=== PATIENT | male | born 1940 | race Caucasian/White ===

== ENCOUNTER 2018-08-23 16:07 | Inpatient (IN) | payer OTHER ==
[~2018-08-23] VITALS: Ht 165.1 cm; Wt 68.0 kg
[2018-08-23 16:09] VITALS: Ht 165.1 cm; Wt 68.0 kg
[2018-08-23 16:59] LABS: BASOPHIL % 0.7 % (0-2); PLATELET COUNT 223 x10^3mcL (130-400); RED CELL DISTRIBUTION WIDTH 13.7 % (11.5-14.5)
[2018-08-23 17:15] LABS: CALCIUM 8.5 mg/dL (8.5-10.1); CARBON DIOXIDE 28.7 mmol/L (21-32); CHLORIDE SERUM 101 mmol/L (98-107); GLUCOSE SERUM 126 mg/dL (74-106); POTASSIUM SERUM 4.1 mmol/L (3.5-5.1); SODIUM SERUM 139 mmol/L (136-145)
[2018-08-23 17:20] LABS: ALBUMIN 3.2 g/dL (3.4-5.0); ALKALINE PHOSPHATASE 62 U/L (46-116); ALT/SGPT 15 U/L (16-63); AST/SGOT 14 U/L (15-37); BILIRUBIN TOTAL 0.3 mg/dL (0.20-1.00); TOTAL PROTEIN, SERUM 6.7 g/dL (6.4-8.2)
[2018-08-23] MEDS ORDERED: GOOD SENSE OMEP20 MG PO (19:48)
[2018-08-23] MEDS ORDERED: GLUCOPHAGE XR500 MG PO (19:48)
[2018-08-23] MEDS ORDERED: ZESTRIL20 MG PO (19:49)
[2018-08-23] MEDS ORDERED: METOPROLOL TART50 MG PO (19:49)
[2018-08-23] MEDS ORDERED: LIPITOR40 MG PO (19:49)
[2018-08-23] MEDS ORDERED: VITAMIN D3 COM1 EACH PO (19:50)
[2018-08-23] MEDS ORDERED: ASPIR 8181 MG PO (19:50)
[2018-08-23 20:01] LABS: MAGNESIUM 1.6 mg/dL (1.8-2.4); PHOSPHOROUS 4.2 mg/dL (2.5-4.9)
[2018-08-23 20:02] LABS: CHOLESTEROL/HDL RATIO 4.6
[2018-08-23 20:28] LABS: microscopic required? YES; urine erythrocyte NEGATIVE (NEGATIVE)
[2018-08-23 21:47] VITALS: BP 149/60
[2018-08-24] VITALS (7 sets, daily range): BP systolic 156–181; BP diastolic 65–79
[2018-08-24] MEDS ORDERED: TOP50 PO (00:02)
[2018-08-24 06:43] LABS: CALCIUM 8.4 mg/dL (8.5-10.1); CARBON DIOXIDE 28.1 mmol/L (21-32); CHLORIDE SERUM 103 mmol/L (98-107); GLUCOSE SERUM 92 mg/dL (74-106); POTASSIUM SERUM 3.9 mmol/L (3.5-5.1); SODIUM SERUM 142 mmol/L (136-145)
[2018-08-24 06:44] LABS: BASOPHIL % 0.5 % (0-2); PLATELET COUNT 206 x10^3mcL (130-400); RED CELL DISTRIBUTION WIDTH 13.8 % (11.5-14.5)
[2018-08-25 05:28] VITALS: BP 165/67
[2018-08-25 07:37] LABS: CALCIUM 8.6 mg/dL (8.5-10.1); CARBON DIOXIDE 28.1 mmol/L (21-32); CHLORIDE SERUM 105 mmol/L (98-107); CREATININE SERUM 0.7 mg/dL (0.7-1.3); GLUCOSE SERUM 124 mg/dL (74-106); MAGNESIUM 1.8 mg/dL (1.8-2.4); PHOSPHOROUS 3.5 mg/dL (2.5-4.9); POTASSIUM SERUM 4.1 mmol/L (3.5-5.1); SODIUM SERUM 142 mmol/L (136-145)
[2018-08-25 07:46] LABS: BASOPHIL % 0.5 % (0-2); PLATELET COUNT 220 x10^3mcL (130-400); RED CELL DISTRIBUTION WIDTH 12.9 % (11.5-14.5)
[2018-08-25 08:21] VITALS: BP 193/76
[2018-08-25 10:49] VITALS: BP 188/83
[2018-08-25 13:23] VITALS: BP 173/79
[2018-08-25 16:53] VITALS: BP 149/69
[2018-08-25 20:46] VITALS: BP 141/70
[2018-08-26 05:48] VITALS: BP 166/71
[2018-08-26 07:41] LABS: CALCIUM 8.6 mg/dL (8.5-10.1); CARBON DIOXIDE 27.7 mmol/L (21-32); CHLORIDE SERUM 105 mmol/L (98-107); CREATININE SERUM 0.7 mg/dL (0.7-1.3); GLUCOSE SERUM 104 mg/dL (74-106); POTASSIUM SERUM 3.8 mmol/L (3.5-5.1); SODIUM SERUM 142 mmol/L (136-145)
[2018-08-26 07:43] LABS: BASOPHIL % 0.3 % (0-2); PLATELET COUNT 213 x10^3mcL (130-400); RED CELL DISTRIBUTION WIDTH 13.9 % (11.5-14.5)
[2018-08-26 09:59] VITALS: BP 162/70
[2018-08-26 13:01] VITALS: BP 202/82
[2018-08-26 15:47] VITALS: BP 159/69
[2018-08-26 22:30] VITALS: BP 167/72
[2018-08-27 06:06] VITALS: BP 174/80
[2018-08-27 07:49] VITALS: BP 192/74
[2018-08-27 12:10] VITALS: BP 168/75
[2018-08-27 16:09] VITALS: BP 181/80
[2018-08-27 17:27] VITALS: BP 164/71
[2018-08-27 21:06] VITALS: BP 155/67
[2018-08-28] VITALS (7 sets, daily range): BP systolic 147–181; BP diastolic 72–81
[2018-08-28 07:01] LABS: BASOPHIL % 0.3 % (0-2); PLATELET COUNT 229 x10^3mcL (130-400); RED CELL DISTRIBUTION WIDTH 13.5 % (11.5-14.5)
[2018-08-28 07:27] LABS: CALCIUM 8.9 mg/dL (8.5-10.1); CARBON DIOXIDE 28.9 mmol/L (21-32); CHLORIDE SERUM 102 mmol/L (98-107); CREATININE SERUM 0.8 mg/dL (0.7-1.3); GLUCOSE SERUM 144 mg/dL (74-106); POTASSIUM SERUM 3.9 mmol/L (3.5-5.1); SODIUM SERUM 139 mmol/L (136-145)
[2018-08-29 05:21] VITALS: BP 149/70
[2018-08-29 06:43] LABS: CALCIUM 8.6 mg/dL (8.5-10.1); CARBON DIOXIDE 25.2 mmol/L (21-32); CHLORIDE SERUM 101 mmol/L (98-107); CREATININE SERUM 0.7 mg/dL (0.7-1.3); GLUCOSE SERUM 153 mg/dL (74-106); POTASSIUM SERUM 3.5 mmol/L (3.5-5.1); SODIUM SERUM 137 mmol/L (136-145)
[2018-08-29 08:07] LABS: BASOPHIL % 0.3 % (0-2); PLATELET COUNT 243 x10^3mcL (130-400); RED CELL DISTRIBUTION WIDTH 13.4 % (11.5-14.5)
[2018-08-29 08:52] VITALS: BP 149/67
[2018-08-29 12:41] VITALS: BP 165/74
[2018-08-29 17:55] VITALS: BP 162/81
[2018-08-29 19:25] VITALS: BP 158/76
[2018-08-30 06:24] LABS: BASOPHIL % 0.4 % (0-2); PLATELET COUNT 230 x10^3mcL (130-400); RED CELL DISTRIBUTION WIDTH 13.7 % (11.5-14.5)
[2018-08-30 06:29] LABS: CALCIUM 8.5 mg/dL (8.5-10.1); CARBON DIOXIDE 26.2 mmol/L (21-32); CHLORIDE SERUM 101 mmol/L (98-107); CREATININE SERUM 0.8 mg/dL (0.7-1.3); GLUCOSE SERUM 173 mg/dL (74-106); POTASSIUM SERUM 3.6 mmol/L (3.5-5.1); SODIUM SERUM 137 mmol/L (136-145)
[2018-08-30 06:34] VITALS: BP 150/73
[2018-08-30 08:16] VITALS: BP 164/87
[2018-08-30 08:26] VITALS: BP 164/87
[2018-08-30] MEDS ORDERED: NOR10 PO (09:35)
[2018-08-30] MEDS ORDERED: ACCU-CHEK FAST1 EAC1 MC (09:35)
[2018-08-30] MEDS ORDERED: LISINOPRIL40 MG PO (09:35)
== END 2018-08-30 13:09 | disposition home or self-care (01) | DRG 73 ==
LOC: ED 16:07 → DU 19:18
PROVIDERS: Emergency Medicine; ADMIT General Practice
DX: G90.9 Disorder of the autonomic nervous system, unspecified (principal); N17.0 Acute kidney failure with tubular necrosis; G45.9 Transient cerebral ischemic attack, unspecified; E44.1 Mild protein-calorie malnutrition; D68.69 Other thrombophilia; E11.65 Type 2 diabetes mellitus with hyperglycemia; E83.42 Hypomagnesemia; E78.5 Hyperlipidemia, unspecified; K21.9 Gastro-esophageal reflux disease without esophagitis; R80.9 Proteinuria, unspecified; I10 Essential (primary) hypertension; Z79.82 Long term (current) use of aspirin; Z68.24 Body mass index [BMI] 24.0-24.9, adult; Z79.84 Long term (current) use of oral hypoglycemic drugs
CPT/HCPCS: 82962; 97110-GP; 97112-GP; 97116-GP; 97530-GP; J1885; J7030; Q0092